=== PATIENT | female | born 1960 | race Caucasian/White ===

== ENCOUNTER 2021-09-20 15:07 | Outpatient (CLI) | payer OTHER, SELFPAY ==
--- NOTE | 2021-09-20 15:30 | MR_ITS ---
[address] [address] Phone:?[phone] Fax:?[phone] Referring Physician Information: Sergio Browne M.D. [id number] [facility] [address] Phone:?[phone] Fax:?[phone] Patient:Rebecca Dowell D.O.B:?1960 Sex:?Female Phone:?[phone] [facility] MRN:?[id number] Exam Date:?09/20/2021 ? EXAM: MRI of the RIGHT KNEE, without contrast CLINICAL: Unspecified right knee symptoms. Evaluate for meniscal tear. COMPARISONS: None available. TECHNICAL: MR sequences of the right knee: sagittals: PD, PDFS coronals: PD, T2FS axials: PD, PDFS SEDATION: None. CONTRAST: None. FINDINGS: Ligaments: ACL: Intact ACL anteromedial and posterolateral bundles, without sprain or tear. PCL: Intact PCL, without acute or chronic injury. MCL: Intact MCL superficial and deep layers, without injury. LCL: Intact LCL, without injury. Posterolateral corner: Popliteus, biceps femoris, iliotibial band, and the popliteofibular ligament appear intact. Posteromedial corner: Semimembranosus, pes anserine tendons and posterior oblique ligament appear intact. Extensor mechanism: Patellar tendon: Intact, without tendinopathy. Quadriceps tendon: Intact, without tendinopathy. Retinacula: Medial and lateral retinacula are intact. Fat pads: Unremarkable infrapatellar Hoffa's, quadriceps and prefemoral fat pads. Patellofemoral joint: Patella: Grade 3 chondral loss involves the medial patellar facet extending into the patellar median ridge, with minimal subchondral marrow edema involving the medial patellar facet. Trochlea: Ill-defined grade 2-3 chondral loss involves the inferior medial trochlea with underlying subchondral reactive edema. Mild heterogeneity and small segment of deep chondral delamination involves the central trochlea on sagittal series 6 image 15. Medial compartment: Medial meniscus: Mild degenerative fraying/tearing involves the free edge of the posterior horn on sagittal series 6 image 20-23. Complex tearing involves the body segment extending into the junction with the anterior horn on coronal series images 16-20 and sagittal series 6 images 23-24. Medial cartilage: High-grade chondral thinning is seen to involve the weightbearing medial femoral condyle with minimal underlying subchondral reactive marrow edema. High-grade chondral thinning also involves the peripheral medial tibial plateau adjacent to the medial meniscus. Mild heterogeneity of the cartilage involving the superior posterior nonweightbearing medial femoral condyle with small underlying subchondral cystic change. Lateral compartment: Lateral meniscus: No evidence of discrete meniscal tear or meniscal displacement. Lateral cartilage: No significant chondromalacia. Knee joint: Effusion: Small right knee effusion. Intra-articular bodies:?No convincing bodies identified. Popliteal cyst: None. Bones: No suspicious bone marrow signal alteration or fracture line. IMPRESSION: 1. Tearing of the body segment medial meniscus extending into the junction with the anterior horn, with mild ill-defined degenerative fraying/tearing involving the free edge of the posterior horn medial meniscus. 2. Patellofemoral and medial compartment chondral loss as above. 3. Small joint effusion. 4. No evidence of ligamentous injury or fracture. [facility] Electronically signed on 09/21/2021 9:31:00 AM by Kulwant Negro D.O.
== END 2021-09-20 15:08 | disposition home or self-care (01) ==
LOC: MRI 15:08
PROVIDERS: Visit Provider Orthopaedic Surgery Sports Medicine
DX: M25.561 Pain in right knee (principal); M17.11 Unilateral primary osteoarthritis, right knee; M23.211 Derangement of anterior horn of medial meniscus due to old tear or injury, right knee; M23.221 Derangement of posterior horn of medial meniscus due to old tear or injury, right knee; M25.461 Effusion, right knee
CPT/HCPCS: 73721

== ENCOUNTER 2021-10-06 06:41 | Day surgery (SDC) | payer OTHER, SELFPAY ==
[2021-10-06] VITALS (10 sets, daily range): BP systolic 87–133; BP diastolic 50–77; PULSE 51–66; RESP 14–18; TEMP 36.1–36.8; O2SAT 96–100; BMI 26.4
[2021-10-06] MEDS: LACTATED RINGERS 1000 ML 1,000 ML 100 ML IV (07:30)
[2021-10-06] MEDS: CEFAZOLIN 2 GM INJ IVP (08:12)
[2021-10-06] MEDS: ROPIVACAINE 0.5% 30 ML 150 MG INJECTION (09:00)
--- NOTE | 2021-10-06 09:12 | W.ANESCHARGE ---
Anesthesia Charges Start Date/Time Anesthesia Start Date: 10/06/21 Anesthesia Start Time: 08:06 Stop Date/Time Anesthesia Stop Date: 10/06/21 Anesthesia Stop Time: 09:11 Summary Emergency: No
--- NOTE | 2021-10-06 09:27 | W.ANESCHARGE ---
Anesthesia Charges Start Date/Time Anesthesia Start Date: 10/06/21 Anesthesia Start Time: 08:06 Stop Date/Time Anesthesia Stop Date: 10/06/21 Anesthesia Stop Time: 09:11 Summary Emergency: No
--- NOTE | 2021-10-06 09:48 | P.ORPRC_ITS ---
Procedure Note Date of procedure: 10/06/21 Procedure: PREOPERATIVE DIAGNOSIS: 1. Right knee medial meniscus tear POSTOPERATIVE DIAGNOSIS: 1. Right knee medial meniscus tear 2. 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 Right knee arthroscopic partial medial menisectomy SURGEON: Sergio Browne M.D. RN ANTE PARTUM: Eloy Ellsworth PA-C. Of note, an clinical trials assistant was critical for this case to aid in patient positioning, knee manipulation, instrument exchange, and closure. ANESTHESIA: Spinal EBL: 2ml TOURNIQUET: 30 min at 250 torr COMPLICATIONS: None evident INDICATIONS: The patient is a pleasant a 60-year-old female who has experienced right knee pain particularly with any twisting or turning. Physical exam was concerning for medial meniscus tear, this was confirmed on MRI. Additionally, attempted nonoperative management has been tried, and failed. Thus, surgery was recommended. FINDINGS: Complex tearing of the posterior horn to midbody medial meniscus. Grade 3 chondromalacia medial femoral condyle broadly through the weight-bearing portion. Grade 3 chondromalacia patella central median ridge and medial facet. DESCRIPTION OF PROCEDURE: After a thorough discussion of risks, benefits, and alternatives, the patient was brought to the operating room and placed upon the operating table. Induction of anesthesia was undertaken as previously noted. 1 g IV Ancef was administered within 1 hr of incision preoperatively. Appropriate time-out was performed identifying proper patient, site, and procedure. The right lower extremity was prepped and draped in the appropriate sterile fashion using ChloraPrep. The limb was exsanguinated and tourniquet inflated. Anterolateral and anteromedial portals were established with an 11 blade, and a diagnostic arthroscopy was performed. This identified the findings as noted above. Following the diagnostic arthroscopy, a partial medial menisectomy was performed with the combination of basket forceps and a motorized shaver. Following this, the meniscus was re-probed and found to be stable. Approximately 25-30 % of the overall meniscus required resection. At this stage, the shaver was reinserted into the suprapatellar pouch and all remaining meniscal debris was evacuated. Instruments were removed, excess fluid was drained, and closure performed with 4-0 Monocryl with Steri-Strips. Dressings were applied, the tourniquet deflated, and the patient was awoken from anesthesia and transferred to the PACU in stable condition. PLAN: 1. Weightbear as tolerated operative extremity. Crutch / walker ambulation assistance PRN. 2. Ice, acetominophen and/or ibuprofen, and Percocet for pain as needed. 3. Knee range of motion and quad sets/straight leg raise regularly 4. Follow up with PA visit in 1-2 weeks for a wound check and possibly to initiate physical therapy.
== END 2021-10-06 10:52 | disposition home or self-care (01) ==
PROVIDERS: Visit Provider Orthopaedic Surgery Sports Medicine
PROC: (CPT 29870; principal; 2021-10-06 08:15)
DX: M23.221 Derangement of posterior horn of medial meniscus due to old tear or injury, right knee (principal); M94.261 Chondromalacia, right knee
CPT/HCPCS: 29881; 01400; J0690; J1100; J2250; J2405; J2704; J2795; J3010; J7120

== ENCOUNTER 2021-11-02 09:30 | Outpatient (RCR) | payer OTHER, SELFPAY | END 2022-01-11 15:59 | disposition home or self-care (01) | PROVIDERS: Visit Provider Orthopaedic Surgery Sports Medicine | DX: M25.561 Pain in right knee (principal); Z96.651 Presence of right artificial knee joint; Z51.89 Encounter for other specified aftercare | CPT/HCPCS: 97110; 97140; 97162 ==

== ENCOUNTER 2022-02-10 07:12 | Emergency (ER) | payer OTHER, SELFPAY ==
[2022-02-10 07:18] VITALS: BP 124/67; PULSE 99; RESP 18; TEMP 37.7; O2SAT 98; BMI 25.8
--- NOTE | 2022-02-10 07:41 | ED_ITS ---
HPI - General Adult General Chief complaint: Fever Stated complaint: fever, chest pain Time Seen by Provider: 02/10/22 07:20 Source: patient Mode of arrival: ambulatory History of Present Illness HPI narrative: 61-year-old female presents the emergency department with cough, body aches, fevers and congestion for the past 4 days. No localizing symptoms of infection like urinary source, abdominal pain, vomiting, productive cough. No obvious known illness exposures. Is vaccinated against influenza and COVID. Patient states that her symptoms started 3-4 days ago, fever up to 101 at home in the last couple of days. Because of the headache and body aches, she cannot sleep. She has not tried melatonin and Tylenol p.m. to help with her sleep. Please is modafinil but has not taken again in the last couple of days. She developed s ome chest pain and describes this as substernal but is only with taking a deep breath and with cough. Cough is nonproductive, it is not associated with wheezing, shortness of breath. She has no history of chronic lung disease, asthma or reactive airway disease. At home and this was negative. She has been alternating Tylenol and ibuprofen with some mild temporary improvement in symptoms. Specifically about any changes that made her come to the emergency department at this point, she states that she ?can not take it anymore? and needs to feel better. She continues to take fluids well, overall appetite is decreased. Most concern about the poor sleep. Past medical history notable for ADHD, depression, hypothyroidism. Home meds are levothyroxine, citalopram, modafinil. No known drug allergies. Socially denies any alcohol or illicit drug use. No pertinent travel. ROS is notable for the generalized, neurological, HEENT, respiratory and chest symptoms as above. Otherwise denies times 12 systems. Related Data Home Medications Medication Instructions Recorded Confirmed calcium-magnesium 750 mg-465 mg 1 tab PO QDAY 09/13/21 10/14/21 tablet citalopram 40 mg tablet 40 mg PO DAILY 09/13/21 10/14/21 clobetasol 0.05 % topical cream 1 topical PRN 09/13/21 10/14/21 ibuprofen 200 mg tablet 400 mg PO Q6H PRN 09/13/21 10/14/21 levothyroxine 75 mcg tablet 75 mcg PO DAILY 09/13/21 10/14/21 modafinil 200 mg tablet 200 mg PO DAILY 09/13/21 10/14/21 multivitamin (Multiple Vitamins 1 tab PO QDAY 09/13/21 10/14/21 tablet) tretinoin 0.025 % topical cream 1 applic topical .Bedtime 09/13/21 10/14/21 zolmitriptan 5 mg disintegrating 5 mg PO DIRECTED PRN 09/13/21 10/14/21 tablet Previous Rx's Medication Instructions Recorded oxycodone-acetaminophen 5 mg-325 1 tab PO Q6H PRN pain #10 tabs 10/06/21 mg tablet Allergies Allergy/AdvReac Type Severity Reaction Status Date / Time No Known Allergies Allergy Unverified 10/14/21 10:00 PFSH PFSH Medical History ADHD Encounter for preoperative screening laboratory testing for severe acute respiratory syndrome coronavirus 2 (SARS-CoV-2) Hypothyroidism Surgical History H/O arthroscopy of right knee History of blepharoplasty History of left knee surgery (10/11/17) Status post medial meniscectomy of right knee Umbilical hernia (~1979) Family History Father No problems noted. Mother Breast cancer Brother Prostate cancer Social History Smoking Status: Former smoker Do you use any of these nicotine containing products: None Second hand tobacco smoke exposure: No How often do you have a drink containing alcohol: never How often do you have six or more drinks on one occasion: Never AUDIT-C Alcohol total score: 0 Non-prescribed substance use: denies use Are you now , , , , never or living with a partner: Social isolation score (0-1 are the most socially isolated patients): 0 service: No Exam Const: Vital Signs, click to edit/add: Vital Signs - 24 hr 02/10/22 07:18 Temperature 99.8 F H Pulse Rate [Right Pulse Oximeter] 99 Respiratory Rate 18 Blood Pressure [Ri ght Upper Arm] 124/67 Pulse Oximetry 98 Oxygen Delivery Me thod Room Air Documenting provider has reviewed patient's vital signs: yes Common normals: no apparent distress General appearance: cooperative and well kempt HENMT: Common normals: normocephalic Head and scalp: normocephalic Face and sinus: normal facial exam Other: And normal bilaterally. Oropharynx with moist membranes, no erythema or exudate. Nose with minimal clear mucus congestion only. Eye: Other: Normal visual tracking and pupils. Conjunctivae and sclerae are slightly injected but with no exudate. Neck & C-Spine: Common normals: full ROM, no lymphadenopathy and no meningeal signs Resp: Common normals: normal respiratory effort, no use of accessory muscles and clear to auscultation bilaterally Effort & inspection: able to speak in complete sentences Auscultation: clear to auscultation bilaterally Cardio: Common normals: regular rate, regular rhythm, S1 normal heart sound, S2 normal heart sound, no murmurs and peripheral pulses 2+ throughout Rate: regular rate Rhythm: regular rhythm Heart sounds: S1 normal and S2 normal Peripheral pulses: pulses 2+ throughout GI: Common normals: Normal to inspection, nondistended, normoactive bowel sounds present, soft to palpation, non-tender, no hepatosplenomegaly and no masses Palpation: soft and no hepatosplenomegaly Extremity: Common normals: normal to inspection, full ROM and normal capillary refill Neuro: Meningeal signs: no meningeal signs Speech: speech normal Gait (neuro): normal gait Motor exam: no tremor noted and no movement abnormalities noted Psych: Common normals: speech normal Appearance: well kempt Attitude: engaged Activity/motor behavior: appropriate eye contact Speech: normal speech Insight: insight good Judgement: judgment good Skin: Common normals: no rashes or lesions noted General skin exam: no rashes or lesions noted Course Vital Signs Vital signs: Initial Vital Signs Temperature 99.8 F H 02/10/22 07:18 Temperature Source Temporal Artery Scan 02/10/22 07:18 Pulse Rate 99 02/10/22 07:18 Respiratory Rate 18 02/10/22 07:18 Blood Pressure 124/67 02/10/22 07:18 Blood Pressure Mean 86 02/10/22 07:18 Blood Pressure Position Sitting 02/10/22 07:18 Pulse Oximetry 98 02/10/22 07:18 Oxygen Delivery Method 02/10/22 07:18 Vital Signs Temperature 99.8 F H 02/10/22 07:18 Pulse Rate 99 02/10/22 07:18 Respiratory Rate 18 02/10/22 07:18 Blood Pressure 124/67 02/10/22 07:18 Pulse Oximetry 98 02/10/22 07:18 Oxygen Delivery Method 02/10/22 07:18 Temperature 99.8 F H 02/10/22 07:18 Pulse Rate 99 02/10/22 07:18 Respiratory Rate 18 02/10/22 07:18 Blood Pressure 124/67 02/10/22 07:18 Pulse Oximetry 98 02/10/22 07:18 Oxygen Delivery Method 02/10/22 07:18 Medical Decision Making MDM Narrative Medical decision making narrative: Appears only mildly ill. There is no tachycardia, no hypotension, oxygen levels are normal and she only has a low-grade fever. Suspect viral illness. There are no other localizing symptoms of infection that would make me think of gallbladder disease, urine infection, meningitis, pneumonia, cellulitis or other localizing infections. Swabs are pending for COVID, influenza, RSV. Offered blood work and chest x-ray but stated to patient that I do not think these would be beneficial in her case. They are unlikely to change my management. She is accepting of this answer. She is most interested in a regimen that would help her sleep and I think that this is reasonable. Will try 30 mg IM Toradol and 5 mg of Compazine for headache. She would like to be able to drive herself home and does not want anything impairing, I agree. S positive influenza, not a good candidate for Tamiflu since it has been too many days in the course of her illness. Reviewed symptomatic care. She verbalizes understanding and agreement, did have some improvement in headache from interventions above Lab Data Lab results reviewed: Yes I reviewed the patient's lab results Labs: Lab Results 02/10/22 Range/Units 07:22 SARS-CoV-2 (PCR) Negative SARS-CoV-2 (Negative) Influenza Type A (PCR) POSITIVE PCR FLU A A (Negative) Influenza Type B (PCR) Negative PCR FLU B (Negative) RSV (PCR) Negative PCR RSV (Negative) ECG Data Attestation: I personally reviewed and interpreted this ECG as follows: Prior ECG tracings: not available for review Interpretation: Normal sinus rhythm, rate of 86 with normal axis. I do not appreciate any ST or T-wave abnormalities overall it is fairly low voltage. Discharge Plan Discharge Clinical Impression: Influenza A Patient Disposition: Home, Self-Care Condition: Stable Instructions: Viral Syndrome (ED) Additional Instructions: There are no signs of severe complications from viral illness today. As we discussed, you are doing a great job of keeping up with fluids. I would like for you to continue the Tylenol and ibuprofen. I would recommend that you make better use of [id number] sleep aids while you are ill and for a few days after. I would not take the modafinil for the next few days, as this may be more likely to keep you awake. At bedtime, I would take 10 mg of melatonin and 2 Tylenol id the Tylenol p.m. contains Benadryl. If you prefer, you could take 2 Benadryl separately from the Tylenol with the 10 mg of melatonin. Avoid any caffeine 6 hours prior to bedtime. Take a warm bath prior to bed and make use of any non medicinal aids such as Lavender, scented oils, etc.. Your symptoms are likely to last another 2-5 days. I would continue to rest and care for herself in the manner in which you are doing. If he becomes severely short of breath, there any localizing symptoms of infection, or your symptoms worsen, I would come back to the emergency department if her symptoms remain at this level but are just not improving in 5 days, I would make a clinic appointment. Activity Level: Activity as Tolerated Discharge Diet: Regular Prescriptions: No Action modafinil 200 mg tablet 200 mg PO DAILY levothyroxine 75 mcg tablet 75 mcg PO DAILY zolmitriptan 5 mg tablet,disintegrating 5 mg PO DIRECTED PRN Rx Instructions: ONE TAB AT ONSET OF HEADACHE, MAY REPEAT ONCE IN 2 HRS IF HEADACHE RETURNS clobetasol 0.05 % cream 1 topical PRN tretinoin 0.025 % cream 1 applic topical .Bedtime citalopram 40 mg tablet 40 mg PO DAILY multivitamin [Multiple Vitamins] Tablet 1 tab PO QDAY ibuprofen 200 mg tablet 400 mg PO Q6H PRN calcium-magnesium 750-465 mg tablet 1 tab PO QDAY oxycodone-acetaminophen 5-325 mg tablet 1 tab PO Q6H MDD 6 PRN (Reason: pain) Qty: 10 0RF Follow Up/Referrals: Provider,Not a Local [Primary Care Provider] - Stand Alone Forms: [employer] [employer] Info Instructions
[2022-02-10] MEDS: KETOROLAC 30 MG/ML inj IM (08:05)
[2022-02-10 08:18] LABS: PCR FLU A POSITIVE PCR FLU A (Negative); PCR FLU B Negative PCR FLU B (Negative); PCR RSV Negative PCR RSV (Negative)
[2022-02-10 08:24] LABS: SARS PCR* Negative SARS-CoV-2 (Negative)
[2022-02-10] MEDS: PROCHLORPERAZINE 10 MG TABLET 5 MG PO (08:52)
== END 2022-02-10 08:56 | disposition home or self-care (01) ==
LOC: ED 07:56
PROVIDERS: Emergency Provider Family Medicine
DX: J09.X2 Influenza due to identified novel influenza A virus with other respiratory manifestations (principal)
CPT/HCPCS: 87502; 87634; 87635; 93005; 96372; 99283; 99284; A9270; J1885

== ENCOUNTER 2023-06-05 13:02 | Emergency (ER) | payer OTHER, SELFPAY ==
[2023-06-05 13:04] VITALS: BP 150/100; PULSE 105; RESP 16; TEMP 36.7; O2SAT 98; BMI 26.6
--- NOTE | 2023-06-05 13:24 | XR_ITS ---
Patient: SCOTT CALLES Facility:?[facility] Patient ID:?[id number] Site Patient ID:?[id number]. Site :?[id number] Study:?XRay-Extremity Left Ankle 3v-06/05/2023 1:52:04 PM Ordering Physician:Cliff Garcia Final Report: Indication: Tree fell on her Technique: Three views of the left ankle Comparison: None Findings/impression : Tiny, not significantly displaced avulsion fracture along the inferior aspect of the medial malleolus. There is an obliquely oriented, nondisplaced fracture along the posterior aspect of the distal tibia, best seen on lateral view. No appreciable displaced fracture of the fibula. The ankle articulation is anatomic. No suspicious osseous lesions. Plantar aspect calcaneal enthesophyte. Os peroneum. Moderate soft tissue swelling along the medial malleolus and anterior aspect of the ankle. Dictated by Kulwant Moreno MD @ 06/05/2023 2:10:18 PM Signed by:?Kulwant Moreno MD @06/05/2023 2:10:18 PM (Electronic Signature)
--- NOTE | 2023-06-05 13:24 | XR_ITS ---
Patient: SCOTT CALLES Facility:?[facility] Patient ID:?[id number] Site Patient ID:?[id number]. Site :?1960 Study:?XRay-Hip Left 2 view with pelvis-06/05/2023 1:52:02 PM Ordering Physician:Cliff Garcia Final Report: Indication: Tree fell on her Technique: Frontal view of the pelvis and frontal and lateral views of the left hip Comparison: None Findings/impression : No acute fracture or malalignment. No significant osteoarthritic degenerative changes of the bilateral hips. No suspicious osseous lesions. Soft tissues are within normal limits. Few small pelvic phleboliths. Dictated by Kulwant Moreno MD @ 06/05/2023 2:06:59 PM Signed by:?Kulwant Moreno MD @06/05/2023 2:06:59 PM (Electronic Signature)
[2023-06-05] MEDS: KETOROLAC 30 MG/ML inj IM (13:33)
--- NOTE | 2023-06-05 14:11 | ED_ITS ---
HPI - Extremity Injury (Lower) General Date Seen: 06/05/23 Chief Complaint: Extremity Pain/Injury, Lower Stated Complaint: ankle injury Time Seen by Provider: 06/05/23 13:07 Source: patient Mode of arrival: wheelchair Limitations: no limitations History of Present Illness HPI Narrative: Patient is a 62-year-old female presenting for left ankle and left hip pain that occurred shortly prior to arrival. States she was using a chainsaw to cut some branches mother large branch fell on her left ankle knocking her to the ground. She has been unable to walk on it since then secondary to pain. She also states when she arrived to the emergency department she noticed movement causes pain in her left low back. Denies any other injuries. Denies numbness to the left foot but does notice pain around the entire ankle. Denies pain anywhere else. Related Data Home Medications Medication Instructions Recorded Confirmed calcium-magnesium 750 mg-465 mg 1 tab PO QDAY 09/13/21 06/05/23 tablet citalopram 40 mg tablet 40 mg PO DAILY 09/13/21 06/05/23 clobetasol 0.05 % topical cream 1 applic topical PRN 09/13/21 05/10/22 ibuprofen 200 mg tablet 400 mg PO Q6H PRN 09/13/21 05/10/22 levothyroxine 75 mcg tablet 75 mcg PO DAILY 09/13/21 06/05/23 modafinil 200 mg tablet 200 mg PO DAILY 09/13/21 06/05/23 multivitamin (Multiple Vitamins 1 tab PO QDAY 09/13/21 06/05/23 tablet) tretinoin 0.025 % topical cream 1 applic topical .Bedtime 09/13/21 05/10/22 zolmitriptan 5 mg disintegrating 5 mg PO DIRECTED PRN 09/13/21 05/10/22 tablet Previous Rx's Medication Instructions Recorded oxycodone-acetaminophen 5 mg-325 1 tab PO Q6H PRN pain #10 tabs 10/06/21 mg tablet Allergies Allergy/AdvReac Type Severity Reaction Status Date / Time No Known Allergies Allergy Verified 06/05/23 13:09 Review of Systems Narrative: Pertinent systems reviewed and were negative unless stated in HPI PFSH PFSH Medical History (Updated 06/05/23 @ 15:04 by Background Daemon) ADHD ?F90.9 - Attention-deficit hyperactivity disorder, unspecified type (ICD-10) Hypothyroidism ?E03.9 - Hypothyroidism, unspecified (ICD-10) Encounter for preoperative screening laboratory testing for severe acute respiratory syndrome coronavirus 2 (SARS-CoV-2) ?Z01.812 - Encounter for preprocedural laboratory examination (ICD-10) ?Z20.822 - Contact with and (suspected) exposure to covid-19 (ICD-10) Surgical History (Updated 05/06/22 @ 11:00 by Siobhan Smith) Status post meniscectomy (10/06/21) ?Z98.890 - Other specified postprocedural states (ICD-10) Umbilical hernia (~1979) ?K42.9 - Umbilical hernia without obstruction or gangrene (ICD-10) History of blepharoplasty ?Z98.890 - Other specified postprocedural states (ICD-10) History of left knee surgery (10/11/17) ?Z98.890 - Other specified postprocedural states (ICD-10) Family History Father No problems noted. Mother Breast cancer Brother Prostate cancer Social History Smoking Status: Former smoker Do you use any of these nicotine containing products: None Second hand tobacco smoke exposure: No How often do you have a drink containing alcohol: never How often do you have six or more drinks on one occasion: Never AUDIT-C Alcohol total score: 0 Non-prescribed substance use: denies use Are you now , , , , never or living with a partner: Social isolation score (0-1 are the most socially isolated patients): 0 service: No Exam Narrative: Exam Narrative: Const: Well-nourished, Well-developed, in moderate distress Eyes: PERRL, no conjunctival injection, and symmetrical lids HENT: Atraumatic external nose and ears. Moist mucous membranes. Neck: Symmetric, trachea midline, No thyromegaly. Removed CV: +2 dorsalis pedis pulses bilaterally GI: Nontender/Nondistended, No rebound or guarding. MSK:Extremities w/o deformity, decreased range of motion at the left ankle secondary to pain but normal movement of her toes, left low paraspinal back pain, no midline tenderness of thoracic lumbar spine, left ankle swelling and numbness Skin: Warm, Dry. No rashes or lesions. Neuro: Normal Muscle tone, No focal neurological deficits. Psych: Awake, Alert, & Oriented x3. Appropriate mood and affect. Const: Vital Signs, click to edit/add: Vital Signs - 24 hr 06/05/23 13:04 06/05/23 14:56 Temperature 98.0 F Pulse Rate [Pulse Oximeter] 105 H 72 Respiratory Rate 16 16 Blood Pressure [Le ft Upper Arm] 150/100 H 157/88 H Pulse Oximetry 98 99 Oxygen Delivery Me thod Room Air Room Air Course Vital Signs Vital signs: Initial Vital Signs Temperature 98.0 F 06/05/23 13:04 Temperature Source Temporal Artery Scan 06/05/23 13:04 Pulse Rate 105 H 06/05/23 13:04 Respiratory Rate 16 06/05/23 13:04 Blood Pressure 150/100 H 06/05/23 13:04 Blood Pressure Mean 116 H 06/05/23 13:04 Blood Pressure Position Sitting 06/05/23 13:04 Pulse Oximetry 98 06/05/23 13:04 Oxygen Delivery Method Room Air 06/05/23 13:04 Vital Signs Temperature 98.0 F 06/05/23 13:04 Pulse Rate 105 H 06/05/23 13:04 Respiratory Rate 16 06/05/23 13:04 Blood Pressure 150/100 H 06/05/23 13:04 Pulse Oximetry 98 06/05/23 13:04 Oxygen Delivery Method Room Air 06/05/23 13:04 Temperature 98.0 F 06/05/23 13:04 Pulse Rate 72 06/05/23 14:56 Respiratory Rate 16 06/05/23 14:56 Blood Pressure 157/88 H 06/05/23 14:56 Pulse Oximetry 99 06/05/23 14:56 Oxygen Delivery Method Room Air 06/05/23 14:56 Medications Administered Medications: Discontinued Medications Generic Name Dose Route Start Last Admin Trade Name Freq PRN Reason Stop Dose Admin Ketorolac Tromethamine 30 mg 06/05/23 13:24 06/05/23 13:33 Ketorolac 30 Mg/Ml Inj IM 06/05/23 13:25 30 mg ONCE ONE Administration MDM - Extremity Injury (Lower) MDM Narrative Medical decision making narrative: Patient is a 62-year-old female presenting for left ankle and left hip pain. Symptoms started shortly prior to arrival after a large branch fell on her left ankle. She knows the left posterior hip pain later on. Initially she was concerned it could be her kidney but the pain is to load for me to think it is kidney injury. Do not believe CT scan to look for intraperitoneal bleeding is necessary as she is otherwise stable only mildly tachycardic secondary to pain. She will be given Toradol for pain to see this approved the symptoms. Will do an x-ray of the left ankle and left hip. Left hip x-rays showed no signs of injuries. Left ankle x-ray shows a it small vein very mildly displaced avulsion fracture at the lateral malleolus along with a large nondisplaced posterior malleolus fracture. Patient is feeling much better after the Toradol. Heart rate came down 73. She is otherwise doing well and I believe she is safe to discharge. Splint was placed and she will follow- up with orthopedics. Informed her to be nonweightbearing. Oxycodone sent to [facility] Left ankle x-ray: Attestation: I have reviewed the pertinent imaging results. Radiologist's impression: Tiny, not significantly displaced avulsion fracture along the inferior aspect of the medial malleolus. There is an obliquely oriented, nondisplaced fracture along the posterior aspect of the distal tibia, best seen on lateral view. No appreciable displaced fracture of the fibula. The ankle articulation is anato eleazar. No suspicious osseous lesions. Plantar aspect calcaneal enthesophyte. Os peroneum. Moderate soft tissue swelling along the medial malleolus and anterior aspect of the ankle. Dictated by Kulwant Moreno MD @ 06/05/2023 2:10:18 PM Left hip x-ray: Attestation: I have reviewed the pertinent imaging results. Radiologist's impression: No acute fracture or malalignment. No significant osteoarthritic degenerative changes of the bilateral hips. No suspicious osseous lesions. Soft tissues are within normal limits. Few small pelvic phleboliths. Dictated by Kulwant Moreno MD @ 06/05/2023 2:06:59 PM Discharge Plan Discharge Clinical Impression: Ankle fracture, left Patient Disposition: Home, Self-Care Condition: Improved Instructions: Ankle Fracture (DC) Additional Instructions: Take Tylenol and ibuprofen for pain. If that is not helping you use the oxycodone. Your to be nonweightbearing to that left extremity and keep the splint dry. Follow-up with orthopedics in the next 3-5 days. Follow up appointment is scheduled at the [facility] on 06/07 with a 10:40am appointment time. Please arrive at 10:20am to check in and complete paperwork. If you have any questions or need to reschedule, please call [phone]. [facility] [address] [place] [address] Prescriptions: No Action modafinil 200 mg tablet 200 mg PO DAILY levothyroxine 75 mcg tablet 75 mcg PO DAILY zolmitriptan 5 mg tablet,disintegrating 5 mg PO DIRECTED PRN Rx Instructions: ONE TAB AT ONSET OF HEADACHE, MAY REPEAT ONCE IN 2 HRS IF HEADACHE RETURNS clobetasol 0.05 % cream 1 applic topical PRN tretinoin 0.025 % cream 1 applic topical .Bedtime citalopram 40 mg tablet 40 mg PO DAILY multivitamin [Multiple Vitamins] Tablet 1 tab PO QDAY ibuprofen 200 mg tablet 400 mg PO Q6H PRN calcium-magnesium 750-465 mg tablet 1 tab PO QDAY oxycodone-acetaminophen 5-325 mg tablet 1 tab PO Q6H MDD 6 PRN (Reason: pain) Qty: 10 0RF Follow Up/Referrals: Provider,Not a Local [Primary Care Provider] - Stand Alone Forms: [facility] Info Instructions Procedures Orthopedic Splinting/Casting Left ankle: Side: left Lower Extremity Injury Location: ankle Lower extremity immobilizer: posterior splint Applied by clinician: MD/DO Conclusion: patient tolerated procedure
[2023-06-05 14:56] VITALS: BP 157/88; PULSE 72; RESP 16; O2SAT 99
== END 2023-06-05 15:23 | disposition home or self-care (01) ==
PROVIDERS: Emergency Provider Student in an Organized Health Care Education/Training Program
DX: S82.52XA Displaced fracture of medial malleolus of left tibia, initial encounter for closed fracture (principal); M25.552 Pain in left hip
CPT/HCPCS: 29515; 73502; 73610; 96372; 99283; 99284; J1885

== ENCOUNTER 2023-06-12 10:34 | Outpatient (CLI) | payer OTHER, SELFPAY ==
--- NOTE | 2023-06-12 11:00 | CT_ITS ---
Patient: SCOTT CALLES Facility:?[facility] RIS Patient ID:?[id number] Site Patient ID:?[id number]. Site :?[id number] Study:?CT-Extremity Left ANKLE WITHOUT-06/12/2023 11:43:28 AM Ordering Physician:PORTER Final Report: Indication: Evaluate distal tibial fracture Technique: Noncontrast CT left ankle Please note that all CT scans at this facility use dose modulation, iterative reconstruction, and/or weight-based dosing when appropriate to reduce radiation dose to as low as reasonably achievable. Comparison: X-rays 06/05/2023 Findings: Nondisplaced intra-articular fracture at the base of the 1st metatarsal noted. Additional mildly displaced fracture at the base of the 2nd metatarsal. Mildly displaced fracture at the base of the 3rd metatarsal also present along with a mildly displaced fracture at the base of the 4th metatarsal. Base of the 5th metatarsal is intact. The cuboid and navicular are maintained. Intact cuneiform bones. Small plantar calcaneal spur is present. The lateral malleolus appears intact. There is a mildly displaced fracture of the distal tibia extending from the posterior malleolus to the medial malleolus. Up to 1 millimeter of articular surface diastasis and articular surface step-off noted. Small densities adjacent to the tip of the medial malleolus noted. The mortise is not widened on the current study. No osteochondral defect of the talar dome. Impression: Mildly displaced intra-articular fracture of the distal tibia extending from the posterior distal metaphysis to the medial malleolus with slight articular surface incongruity at the medial aspect of the tibiotalar joint. Small bone fragments are present adjacent to the tip of the medial malleolus. Multiple fractures of the proximal metatarsals including the 1st, 2nd, 3rd and 4th metatarsals. Please note that all CT scans at this facility use dose modulation, iterative reconstruction, and/or weight-based dosing when appropriate to reduce radiation dose to as low as reasonably achievable. Dictated by Jaylen Padilla MD @ 06/12/2023 11:57:39 AM Signed by:?Jaylen Padilla MD @06/12/2023 11:57:39 AM (Electronic Signature)
== END 2023-06-12 10:35 | disposition home or self-care (01) ==
LOC: CT 10:36
PROVIDERS: Visit Provider Orthopaedic Surgery Sports Medicine
DX: S82.892A Other fracture of left lower leg, initial encounter for closed fracture (principal)
CPT/HCPCS: 73700

== ENCOUNTER 2023-09-20 08:45 | Outpatient (RCR) | payer OTHER, SELFPAY | END 2023-09-20 09:28 | disposition home or self-care (01) | PROVIDERS: Visit Provider Orthopaedic Surgery Sports Medicine | DX: S82.302A Unspecified fracture of lower end of left tibia, initial encounter for closed fracture (principal); S92.902A Unspecified fracture of left foot, initial encounter for closed fracture; R26.2 Difficulty in walking, not elsewhere classified; M62.81 Muscle weakness (generalized); Z51.89 Encounter for other specified aftercare | CPT/HCPCS: 97110; 97112; 97140; 97161 ==